=== PATIENT | female | born 1995 | race Native Hawaiian/Other Pacific Islander ===

== ENCOUNTER 2022-09-17 17:12 | Emergency (ER) | payer OTHER ==
[~2022-09-17] VITALS: Ht 157.5 cm; Wt 76.2 kg
[2022-09-17 17:12] VITALS: TEMP 98.7
[2022-09-17 18:40] LABS: POTASSIUM 2.5 mmol/L (3.6-5.2)
[2022-09-17 18:41] LABS: PLATELET COUNT 451 K/uL (152-353)
[2022-09-17 21:40] VITALS: BP 127/74
== END 2022-09-17 21:40 | disposition home or self-care (01) ==
LOC: ED 17:12
PROVIDERS: Family Medicine
DX: T78.2XXA Anaphylactic shock, unspecified, initial encounter (principal); F41.8 Other specified anxiety disorders; L50.8 Other urticaria; R10.2 Pelvic and perineal pain; X58.XXXA Exposure to other specified factors, initial encounter; Y92.89 Other specified places as the place of occurrence of the external cause
CPT/HCPCS: 80053; 85027; 96374; 96375; 99284; J1200; J2930